=== PATIENT | female | born 1970 | race Caucasian/White ===

== ENCOUNTER 2018-05-19 15:30 | Outpatient (RCR) | payer MEDICAID, SELFPAY ==
--- NOTE | 2018-03-03 11:52 | HP.PTEVAL_ITS ---
Patient's Visit Information RACHELE ZIMMERMAN is a 47 year old F referred to Physical Therapy by Ze Carbone with a diagnosis of LUMBAR DDD, PAIN AND MUSCLE SPASM. DECONDITIONING. CHRONIC PARISH KNEE PAIN.. Date of Evaluation: 03/03/18 Physical Therapist: Grace Davila - Visit Plan Frequency: 2x /Week Duration: 4-6 Weeks Plan: AQUATIC THERAPY FOR PAIN RELEIF, POSTURE CORRECTION/STRENGTHENING, INSTRUCTION IN APPROPRIATE BODY MECHANICS AND ACTIVITY MODIFICATIONS. POSTURAL STRETCHING AND STRENGTHEING TOLERATED. DLS STARTING WITH A NEUTRAL SPINE PROGRESSING ROM TOLERATED. PARISH LE ROM, STRETCHING AND STRENGTHENING. HEP INSTRUCTION. - Subjective Subjective: Work/Leisure: UNEMPLOYEED. Disability: FILED. Present symptoms: INTERMITTENT NECK PAIN, CONSTANT LOW BACK PAIN, AND CONSTANT PARISH KNEE PAIN. INTERMITTENT PARISH ARM, FINGER AND RIGHT THIGH NUMBNESS AND TINGLING. Present since: 2015. Pain Scale: WORST 10/10, LEAST 4/10 IN BACK AND KNEES. Currently : BACK 5/10, KNEES 8/10. Commenced as a result of: NO APPARENT REASON. Symptoms at onset: LOW BACK PAIN. Worse: EVERYTHING - SITTING, STANDING, WALKING, TAKING A SHOWER, GETTING DRESSED... Better: PUTTING MY LEGS UP, IBUPROFEN. Disturbed sleep: YES. Previous history/Previous treatment: AQUATIC THERAPY - WORSE, LAND THERAPY - NE OVER-ALL. NECK THERAPY - WORSE. MEDICATION. NO SURGERIES. Coughing/sneezing/straining: POSITIVE. Gait: USING CANE MOST OF THE TIME. STATES RIGHT LEG GOES TO SLEEP WHEN SHE WALKS AND WALKING CAUSES BACK AND HIP PAIN. SOMETIMES IT FEELS LIKE I AM GOING TO FALL BUT HAS NOT FALLEN. Difficulty initiating urinatin: NO. Accidents: NO. Unexplained weight loss: NO. Imagin LUMBAR X-RAY SHOWING DEGENERATIVE CHANGES BUT ANOTHER X-RAY FALL OF 2017 WAS NORMAL PER PATIENT REPORT AND CONFIRMED IN [facility] EMR. PMH: JAW DEGENERATIVE CHANGES WITH CAT SCAN RECENTLY. DEPRESSION. ANXIETY. MAJOR ALLERGY ISSUES. ASTHMA. Recent major surgery: NO SURGERIES EXCEPT TONSILS. OTHER: PATIENT REPORTS SHE WAS ABLE TO GET IN A POOL AND MOVE AROUND A LITTLE BIT ONE TO TWO TIMES A DAY ON VACATION AND SHE SEEMED TO DO BETTER WHILE SHE WAS DOING THAT. SHE REPORTS THAT ALTHOUGH SHE HAD INCREASED PAIN THE LAST TIME SHE TRIED POOL THERAPY SHE IS WILLING TO TRY AGAIN AND THE DOCTOR WANTS HER TO WELL. - Objective Sitting Posture: POOR. Standing Posture: POOR. Lateral shift: NO. Relevant shift: N/A. Active Correction of posture: BETTER. Other Observations : PATIENT REPORTS SHE IS UNABLE TO TRANSFER FROM SIT TO STAND WITHOUT UE ASSIST AND DOES NOT ATTEMPT TO DO SO. INDEP GAIT INTO PT WITH STRAIGHT CANE AND NO LOSS OF BALANCE OR GROSS DEVIATIONS NOTED. Motor deficit: PARISH LE STRENGTH 5/5 WITH MMT'ING IN SITTING. Sensory deficit: PARISH LE LIGHT TOUCH SENSATION IS INTACT AND SYMMETRICAL. ROM deficit: FULL PARISH KNEE EXT ROM. PARISH KNEE FLEXION MEASURED IN SDLY DUE TO PATIENT REQUESTING NOT TO LIE ON BACK. RIGHT KNEE FLEX TO 118 DEG AND LEFT 114 DEG. KNEE FLEX IS TESTED ACTIVELY AND PATIENT REPORTS STOPPING DUE TO PAIN. LEFT KNEE IS PUFFY. HER KNEES ARE NOT TENDER WITH PALPATION. PATIENT REPORTS SHE HAS A NON CANCEROUS SERGIO ON THE KNEE AND THEY ARE NOT GOING TO REMOVE IT AT THIS TIME. Reflexes: UNABLE TO ELICIT PARISH LE DTR'S. Dural Signs: NEGATIVE PARISH LE DURAL TESTS. Lumbar mvmt loss: flex - MOD. ext - MOD. R SG - MIN. L SG - MIN. PATIENT WITH C/O INCREASED LBP WITH LUMBAR ROM ALL PLANES. Core strength: POOR. Palpation: TENDERNESS WITH LIGHT PALPATION OF THE ENTIRE LUMBAR SPINE INTO THE SACRAL AREA. PATEINT IS NOT TENDER IN PARISH BUTTOCK AND HIP REGIONS TODAY. NO THORACIC TENDERNESS. - Goals Goal 1:: DECREASE C/O LOW BACK AND PARISH LE PAIN Goal Time Frame: 4-6 Weeks Goal 2:: IMPROVE POSTURAL, PERSONAL CARE, LIFTING, WALKING, SITTING, STANDING, SLEEP, SOCIAL LIFE, TRAVEL AND HOMEMAKING FUNCTION. Goal Time Frame: 4-6 Weeks Goal 3:: INSTRUCT IN PROPHYLAXIS Goal Time Frame: 4-6 Weeks - Rehabilitation Potential Rehabilitation Potential: Fair - Anticipated Interventions Patient/Client Instruction: Educate patient on: Condition, Plan of Care, Risk Factors, Benefits of Fitness Program For the Purpose of:: To improve self management Therapeutic Exercise to Include: Strength training, Body mechanics, Postural training, Flexibilty training, In an aquatic setting, Active ROM, Dynamic Lumbar Stabilization, Scapular Strength/Stabilization For the Purpose of:: To decrease pain, To increase ROM, To improve muscle performance and motor function, To improve ability of physical actions for home/ community/work/leisure Thank you for the opportunity to evaluate your patient. For Medicare and Medicare HMO plans, please review the plan of care and approve it. It will need to be FAXED BACK to us at [phone] for Medicare purposes. Please let me know if there are questions or concerns regarding this plan of care. Physician Signature: Date:
--- NOTE | 2018-05-19 16:00 | HP.PTDCSUM ---
HP - PT D/C Summary It has been my pleasure to treat RACHELE ZIMMERMAN under orders from Ze Carbone, for the diagnosis of LUMBAR DDD, PAIN AND MUSCLE SPASM. DECONDITIONING. CHRONIC PARISH KNEE PAIN. for a total of 16 visit(s). Discharge Date: 05/19/18 Please see the following information for a summary of their discharge status. - Subjective Subjective: PATIENT REPORTS SHE IS GLAD SHE WAS ABLE TO CONTINUE PT BECAUSE SHE HAS LEARNED MORE EX'S AND IS DOING THEM AT THE DAYS INN. MAYBE 10% IMPROVEMENT OVER-ALL WITH PAIN LEVELS. HAS TENS UNIT FROM PAIN MGMT NOW AND PATIENT REPORTS TEMPORARY RELEIF WITH ITS USE. - Pain Lumbar Spine Pain Intensity (Out of 10): 3 RLE Pain Intensity (Out of 10): 5 LLE Pain Intensity (Out of 10): 2 Upper Body Pain Intensity (Out of 10): 4 - Overall Improvement % Improvement: 10 - Objective Objective/Function: PATIENT IS NOT IMPROVING SIGNIFICANTLY IN TERMS OF PAIN REPORTS OR FUNCTIONAL TESTING HOWEVER SHE IS INDEP WITH A POOL PROGRAM THAT SHE AT LEAST FEELS BETTER TEMPORARILY AFTER DOING. UPON EXAM TODAY THERE ARE NO SIGNIFICANT CHANGES SINCE INITIAL EVAL. PATIENT REPORTS SHE IS UNABLE TO TRANSFER FROM SIT TO STAND WITHOUT UE ASSIST AND DOES NOT ATTEMPT TO DO SO. INDEP GAIT INTO PT WITH STRAIGHT CANE AND NO LOSS OF BALANCE OR GROSS DEVIATIONS NOTED. Motor deficit: PARISH LE STRENGTH 5/5 WITH MMT'ING IN SITTING. Sensory deficit: PARISH LE LIGHT TOUCH SENSATION IS INTACT AND SYMMETRICAL. ROM deficit: FULL PARISH KNEE EXT ROM. PARISH KNEE FLEXION MEASURED IN SITTING: RIGHT KNEE FLEX TO 119 DEG AND LEFT 115 DEG. Dural Signs: NEGATIVE PARISH LE DURAL TESTS. Lumbar mvmt loss: flex - MOD. ext - MOD. R SG - MIN. L SG - MIN. PATIENT WITH C/O INCREASED LBP WITH LUMBAR ROM ALL PLANES. Core strength: POOR. Palpation: TENDERNESS WITH LIGHT PALPATION OF THE ENTIRE LUMBAR SPINE INTO THE SACRAL AREA. PATEINT IS TENDER IN RIGHT BUTTOCK REGION TODAY. NO THORACIC TENDERNESS. - Goals Goal 1:: DECREASE C/O LOW BACK AND PARISH LE PAIN Goal Progress: Not Progressing Goal 2:: IMPROVE POSTURAL, PERSONAL CARE, LIFTING, WALKING, SITTING, STANDING, SLEEP, SOCIAL LIFE, TRAVEL AND HOMEMAKING FUNCTION. Goal Progress: Not Progressing Goal 3:: INSTRUCT IN PROPHYLAXIS Goal Progress: Goal Met - Plan Plan: D/C DO TO LACK OF SIGNIFICANT IMPROVEMENT AND PATIENT BEING INDEP WITH POOL PROGRAM. - D/C Information If there are questions or concerns regarding this patient's physical therapy, please feel free to call me at [phone]. Thank you for the referral of this patient. Sincerely, Grace Davila
== END 2018-05-19 19:00 | disposition home or self-care (01) ==
LOC: PT 15:30
PROVIDERS: Family Provider Internal Medicine; PCP Internal Medicine; Visit Provider Anesthesiology Pain Medicine
DX: M62.830 Muscle spasm of back (principal); R53.81 Other malaise; M54.9 Dorsalgia, unspecified; M51.36 Other intervertebral disc degeneration, lumbar region; M25.561 Pain in right knee; M25.562 Pain in left knee; G89.29 Other chronic pain
CPT/HCPCS: 97113; 97162; 97164